=== PATIENT | male | born 1980 | race Hispanic/Latino ===

== ENCOUNTER 2017-03-31 12:46 | Emergency (ER) | payer OTHER, BC ==
[2017-03-31 13:08] VITALS: BP 141/71
[2017-03-31] MEDS ORDERED: MOTRIN PO ONE (15:32)
[2017-03-31] MEDS ORDERED: TYLENOL PO ONE (15:32)
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
== END 2017-03-31 16:12 | disposition home or self-care (01) ==
LOC: ED 12:46
DX: M54.2 Cervicalgia (principal); M54.89 Other dorsalgia; M25.519 Pain in unspecified shoulder; J45.909 Unspecified asthma, uncomplicated; V49.40XA Driver injured in collision with unspecified motor vehicles in traffic accident, initial encounter; Y93.89 Activity, other specified; Y92.89 Other specified places as the place of occurrence of the external cause; Y99.8 Other external cause status
CPT/HCPCS: 99282